=== PATIENT | male | born 1960 | race African-American/Black ===

== ENCOUNTER 2017-12-13 10:30 | Emergency (ER) | payer MEDICAID ==
[~2017-12-13] VITALS: Ht 167.6 cm; Wt 108.9 kg
[2017-12-13 10:47] VITALS: BP 140/77
[2017-12-13] MEDS ORDERED: D5W 275ml ONE (10:51)
[2017-12-13] MEDS ORDERED: Ipratropium 0.02% Inh Soln 2.5ml UD HHN ONE (11:00)
[2017-12-13] MEDS ORDERED: Albuterol ud Inhalation HHN ONE (11:00)
[2017-12-13 11:25] LABS: BASOPHILS % (AUTO) 1.1 % (0.0-2.0); EOSINOPHILS % (AUTO) 4.6 % (0.0-3.0); HEMATOCRIT 42.8 % (42.0-52.0); HEMOGLOBIN 13.7 G/DL (14.2-18.0); LYMPHOCYTES % (AUTO) 33.9 % (20.0-45.0); MEAN CORPUSCULAR VOLUME 97 FL (80-99); MONOCYTES % (AUTO) 9.4 % (1.0-10.0); NEUTROPHILS % (AUTO) 51.1 % (45.0-75.0); PLATELET COUNT 195 K/UL (150-450); RED BLOOD COUNT 4.41 M/UL (4.70-6.10); WHITE BLOOD COUNT 5.4 K/UL (4.8-10.8)
[2017-12-13 11:38] LABS: ANION GAP 6 mmol/L (5-15); BLOOD UREA NITROGEN 9 mg/dL (7-18); CALCIUM 8.8 MG/DL (8.5-10.1); CARBON DIOXIDE 30 MMOL/L (21-32); CHLORIDE 108 MMOL/L (98-107); CREATININE 0.8 MG/DL (0.55-1.30); POTASSIUM 3.9 MMOL/L (3.5-5.1); SODIUM 144 MMOL/L (136-145)
[2017-12-13 11:48] LABS: ALANINE AMINOTRANSFERASE 15 U/L (12-78); ALBUMIN 3.3 G/DL (3.4-5.0); ALBUMIN/GLOBULIN RATIO 0.9 (1.0-2.7); ALKALINE PHOSPHATASE 73 U/L (46-116); ASPARTATE AMINO TRANSFERASE 12 U/L (15-37); BILIRUBIN,TOTAL 0.2 MG/DL (0.2-1.0)
[2017-12-13 11:53] LABS: APPEARANCE,URINE CLEAR; BILIRUBIN, URINE NEGATIVE (NEGATIVE); GLUCOSE, URINE (UA) NEGATIVE (NEGATIVE); KETONES,URINE NEGATIVE (NEGATIVE); LEUKOCYTE ESTERASE ,URINE 1+ (NEGATIVE); NITRITE,URINE NEGATIVE (NEGATIVE); PH,URINE 6 (4.5-8.0); PROTEIN,URINE 1+ (NEGATIVE); UROBILINOGEN,URINE 1 MG/DL (0.0-1.0)
[2017-12-13 11:55] LABS: COLOR,URINE YELLOW
[2017-12-13] MEDS ORDERED: Azithromycin 500 MG in D5W 275 ML IVPB ONE (12:00)
[2017-12-13] MEDS ORDERED: Azithromycin 500mg Inj IV ONE (12:04)
--- NOTE | 2017-12-13 12:31 | Diagnostic Imaging Report ---
Indication: Shortness of breath Technique: One view of the chest Comparison: none Findings: Lungs and pleural spaces are clear. Heart size is upper limits normal Impression: No acute process
[2017-12-13 12:53] VITALS: BP 137/71
[2017-12-13 12:55] VITALS: BP 137/71
--- NOTE | 2017-12-18 13:47 | Emergency Room Report ---
History of Present Illness General Chief Complaint: Upper Respiratory Illness Source: Patient Present Illness HPI Patient is a 57-year-old male who presented after increased cough and difficulty breathing. Patient gradual onset of symptoms over the past few weeks. The patient reports having intermittent chest discomfort as well as increased dyspnea on exertion. He reported nonproductive cough. He states is had multiple choking episodes. Patient is a smoker. He denies any fever. Allergies: Coded Allergies: No Known Allergies (Unverified , 12/13/17) Patient History Past Medical History: see triage record Reviewed Nursing Documentation: PMH: Agreed, PSxH: Agreed Nursing Documentation-PMH Hx Diabetes: Yes - DM type 2 Review of Systems All Other Systems: negative except mentioned in HPI Physical Exam Vital Signs Date Time Temp Pulse Resp B/P (MAP) Pulse Ox O2 Delivery O2 Flow Rate FiO2 12/13/17 10:37 98.1 90 20 127/80 94 Room Air 12/13/17 11:08 21 Sp02 EP Interpretation: reviewed, normal General Appearance: normal inspection, alert, mild distress, obese Head: atraumatic ENT: hearing grossly normal, normal voice, other - rhinorhea Neck: normal inspection, full range of motion, supple, no bony tend Respiratory: normal inspection, lungs clear, normal breath sounds, no respiratory distress, no retraction, no wheezing Cardiovascular #1: regular rate, rhythm, no edema Gastrointestinal: normal inspection, normal bowel sounds, non tender, soft, no guarding, no hernia Genitourinary: no CVA tenderness Musculoskeletal: normal inspection, back normal, normal range of motion Neurologic: normal inspection, alert, oriented x3, responsive, visual display manager III-XII nml as tested, speech normal Psychiatric: normal inspection, judgement/insight normal, mood/affect normal Skin: normal inspection, normal color, no rash Medical Decision Making Diagnostic Impression: Primary Impression: Bronchitis Additional Impression: Chest pain ER Course Patient presented for shortness of breath. Differential included but was not limited to anemia, pneumonia, pneumothorax, myocardial infarction, pericardial effusion, congestive heart failure, acidosis. Because of complexity of patient' s case laboratory testing and imaging studies were ordered. The patient given breathing treatments as well as steroids. The patient was noted to have a significant difficulty with respirations. Given the patient's cardiac risk factors I discussed admission to the hospital and patient was initially amenable. The patient was noted to have capitated hospital to a different facility. The patient stated he no longer wanted to remain in the hospital The patient was advised risk benefits alternatives of leaving AGAINST MEDICAL ADVICE and he indicated understanding and all questions are answered patient still continued want to leave and signed AGAINST MEDICAL ADVICE. Despite risks including but not limited to disability and worsening of current lifestyle. Labs Test 12/13/17 10:55 12/13/17 11:00 Urine Color Yellow Urine Appearance Clear Urine pH 6 (4.5-8.0) Urine Specific [place] 1.020 (1.005-1.035) Urine Protein 1+ (NEGATIVE) Urine Glucose (UA) Negative (NEGATIVE) Urine Ketones Negative (NEGATIVE) Urine Occult Blood Negative (NEGATIVE) Urine Nitrite Negative (NEGATIVE) Urine Bilirubin Negative (NEGATIVE) Urine Urobilinogen 1 MG/DL (0.0-1.0) Urine Leukocyte Esterase 1+ (NEGATIVE) Urine RBC 0-2 /HPF (0 - 0) Urine WBC 0-2 /HPF (0 - 0) Urine Squamous Epithelial Cells Occasional /LPF Urine Bacteria Occasional /HPF (NONE) Urine Mucus Moderate /LPF (NONE/OCC) White Blood Count 5.4 K/UL (4.8-10.8) Red Blood Count 4.41 M/UL (4.70-6.10) Hemoglobin 13.7 G/DL (14.2-18.0) Hematocrit 42.8 % (42.0-52.0) Mean Corpuscular Volume 97 FL (80-99) Mean Corpuscular Hemoglobin 31.0 PG (27.0-31.0) Mean Corpuscular Hemoglobin Concent 31.9 G/DL (32.0-36.0) Red Cell Distribution Width 12.0 % (11.6-14.8) Platelet Count 195 K/UL (150-450) Mean Platelet Volume 6.9 FL (6.5-10.1) Neutrophils (%) (Auto) 51.1 % (45.0-75.0) Lymphocytes (%) (Auto) 33.9 % (20.0-45.0) Monocytes (%) (Auto) 9.4 % (1.0-10.0) Eosinophils (%) (Auto) 4.6 % (0.0-3.0) Basophils (%) (Auto) 1.1 % (0.0-2.0) Sodium Level 144 MMOL/L (136-145) Potassium Level 3.9 MMOL/L (3.5-5.1) Chloride Level 108 MMOL/L (98-107) Carbon Dioxide Level 30 MMOL/L (21-32) Anion Gap 6 mmol/L (5-15) Blood Urea Nitrogen 9 mg/dL (7-18) Creatinine 0.8 MG/DL (0.55-1.30) Estimat Glomerular Filtration Rate > 60 mL/min (>60) Glucose Level 171 MG/DL (74-106) Lactic Acid Level 1.30 mmol/L (0.66-2.22) Calcium Level 8.8 MG/DL (8.5-10.1) Total Bilirubin 0.2 MG/DL (0.2-1.0) Aspartate Amino Transf (AST/SGOT) 12 U/L (15-37) Alanine Aminotransferase (ALT/SGPT) 15 U/L (12-78) Alkaline Phosphatase 73 U/L (46-116) Troponin I 0.000 ng/mL (0.000-0.056) Pro-B-Type Natriuretic Peptide 81 pg/mL (0-125) Total Protein 6.9 G/DL (6.4-8.2) Albumin 3.3 G/DL (3.4-5.0) Globulin 3.6 g/dL Albumin/Globulin Ratio 0.9 (1.0-2.7) Last Vital Signs Date Time Temp Pulse Resp B/P (MAP) Pulse Ox O2 Delivery O2 Flow Rate FiO2 12/13/17 12:55 98.1 74 20 137/71 99 Room Air 21 Status: improved Disposition: AGAINST MEDICAL ADVICE Condition: Stable Referrals: [facility],REFERRING (PCP) Jefferson Reveles Dec 18, 2017 13:47
--- NOTE | 2017-12-24 14:01 | Cardiology Report ---
APPROVED REPORT EKG Measurement Heart [id number] Sinus rhythm with premature atrial complexes with aberrant conduction Left axis deviation Low voltage QRS Septal infarct, age undetermined Abnormal ECG
== END 2017-12-13 13:08 | disposition left against medical advice (07) ==
LOC: EMR 10:50 → CANBEDREQ 13:08
DX: J40 Bronchitis, not specified as acute or chronic (principal); E11.9 Type 2 diabetes mellitus without complications
CPT/HCPCS: 36415; 71045; 80053; 81003; 83605; 83880; 84484; 85025; 86710; 87040; 93005; 94640; 94664; 99284; J0456; J7512

== ENCOUNTER 2018-05-10 20:13 | Emergency (ER) | payer MEDICAID ==
[~2018-05-10] VITALS: Ht 167.6 cm; Wt 108.9 kg
[2018-05-10] MEDS ORDERED: ASPIRIN81 MG ORAL (20:33)
[2018-05-10] MEDS ORDERED: BENADRYL25 MG ORAL (20:33)
[2018-05-10] MEDS ORDERED: METFORMIN HCL850 M1 ORAL (20:33)
[2018-05-10 20:41] VITALS: BP 148/81
[2018-05-10] MEDS ORDERED: Ketorolac 60mg Inj IM ONE (20:45)
[2018-05-10] MEDS ORDERED: Norco 5mg/325mg tab ORAL ONE (20:45)
[2018-05-10] MEDS ORDERED: ROBAXIN-750750 MG PO (20:46)
[2018-05-10] MEDS ORDERED: PREDNISONE20 MG ORAL (20:46)
[2018-05-10 20:56] VITALS: BP 148/81
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
== END 2018-05-10 20:56 | disposition home or self-care (01) ==
LOC: EMR 20:45
DX: M54.5 Low back pain (principal); M54.2 Cervicalgia; M79.1 Myalgia; E11.9 Type 2 diabetes mellitus without complications
CPT/HCPCS: 96372; 99283

== ENCOUNTER 2018-10-03 11:29 | Emergency (ER) | payer MEDICAID ==
[~2018-10-03] VITALS: Ht 167.6 cm; Wt 108.9 kg
[~2018-10-03 11:29] MED LIST: ASPIRIN81 MG ORAL; BENADRYL25 MG ORAL; METFORMIN HCL850 M1 ORAL; PREDNISONE20 MG ORAL; ROBAXIN-750750 MG PO
[2018-10-03] MEDS ORDERED: ATIVAN1 MG ORAL (11:40)
--- NOTE | 2018-10-03 12:15 | Emergency Room Report ---
History of Present Illness General Chief Complaint: Medication Refill Source: Patient Present Illness HPI 58-year-old male patient presents ER requesting medication refill of 1 mg Ativan. States she has been taking for the past 2 years. Reports that he saw his doctor earlier and got refill of his prescriptions for Abilify, Benadryl, Ativan however when he went to the pharmacy they would not refill the Ativan. Reports he did not follow-up with his doctor and find out why. Denies thoughts of hurting herself or others at this time. Denies fever, chest pain, abdominal pain, vomiting, diarrhea. Allergies: Coded Allergies: No Known Allergies (Unverified , 12/13/17) Patient History Past Medical History: see triage record Reviewed Nursing Documentation: PMH: Agreed; PSxH: Agreed Nursing Documentation-PMH Past Medical History: No History, Except For Hx Diabetes: Yes - DM type 2 History Of Psychiatric Problem: Yes - depression anxiety Review of Systems All Other Systems: negative except mentioned in HPI Physical Exam Vital Signs Date Time Temp Pulse Resp B/P (MAP) Pulse Ox O2 Delivery O2 Flow Rate FiO2 10/03/18 11:35 98.1 73 17 157/94 98 Room Air Sp02 EP Interpretation: reviewed, normal General Appearance: well appearing, no apparent distress, alert, GCS 15, non- toxic Head: normocephalic, atraumatic Eyes: bilateral eye normal inspection, bilateral eye PERRL ENT: hearing grossly normal, normal pharynx, no angioedema, normal voice, uvula midline, moist mucus membranes Neck: full range of motion Respiratory: lungs clear, normal breath sounds, no rhonchi, no respiratory distress, no accessory muscle use, no wheezing, speaking full sentences Cardiovascular #1: regular rate, rhythm, no edema Gastrointestinal: non tender, soft, no mass, non-distended, no guarding, no rebound Musculoskeletal: back normal, digits/nails normal, gait/station normal, normal range of motion, non-tender Neurologic: alert, oriented x3, responsive, motor strength/tone normal, sensory intact Psychiatric: mood/affect normal Skin: no rash Medical Decision Making PA Attestation Dr. Sargent is my supervising Physician whom patient management has been discussed with. Diagnostic Impression: Primary Impression: Encounter for medication refill ER Course Pt. presents to the ED requesting prescription refill. Multiple differentials were considered. Vital signs: are WNL, pt. is afebrile ORDERS: PE benign Informed patient would not provide refill of medication. denies thoughts of hurting himself or others at this time. Will not provide refill of medication. provided contact information for mental health urgent care. Contact primary care provider for further treatment. Informed patient ER cannot provide refills in the future; followup, management and prescription of long-term medications must be performed by primary care provider. ER precautions given. DISCHARGE: No Rx provided at this time. At this time pt is stable for d/c to home. Patient is resting comfortably, in no acute distress, nontoxic appearing, talking without difficulty. Patient to take medications as instructed Will provide with patient care instructions and any necessary prescriptions. Care plan and follow-up instructions provided. Patient instructed to follow-up with primary care provider in 3 - 5 days. Patient questions asked and answered. Patient reports understanding and agreement to treatment plan. ER precautions given. Patient instructed to return to ER immediately for any new or worsening of symptoms including but not limited to increasing SOB, persistent fever. - Please note that this Emergency Department Report was dictated using [employer] equipment maintenance supervisor technology software, occasionally this can lead to erroneous entry secondary to interpretation by the dictation equipment. Last Vital Signs Date Time Temp Pulse Resp B/P (MAP) Pulse Ox O2 Delivery O2 Flow Rate FiO2 10/03/18 11:35 98.1 73 17 157/94 98 Room Air Disposition: HOME, SELF-CARE Condition: Stable Patient Instructions: Medicine Refill at the Emergency Department Additional Instructions: follow-up with mental health urgent care. Followup with primary care provider and pharmacy to discuss medication refill. Take medications as directed. Patient questions asked and answered. ER precautions given, patient instructed to return to ER immediately for any new or worsening of symptoms. Brant Dias Oct 03, 2018 12:15
[2018-10-03 13:30] VITALS: BP 157/94
== END 2018-10-03 13:32 | disposition home or self-care (01) ==
LOC: EMR 12:03
DX: Z76.0 Encounter for issue of repeat prescription (principal); E11.9 Type 2 diabetes mellitus without complications; F32.9 Major depressive disorder, single episode, unspecified; F41.9 Anxiety disorder, unspecified
CPT/HCPCS: 99282

== ENCOUNTER 2020-05-19 13:35 | Outpatient (CLI) | payer MEDICAID ==
[~2020-05-19] VITALS: Ht 167.6 cm; Wt 108.4 kg
[~2020-05-19 13:35] MED LIST changes: +ATIVAN1 MG ORAL
--- NOTE | 2020-05-19 19:00 | Consultation ---
DATE OF CONSULTATION: 05/19/2020 CONSULTING PHYSICIAN: Gulshan Kumar MD. CHIEF COMPLAINT: Referral for screening colonoscopy, chronic constipation. PAST MEDICAL HISTORY: 1. Hypertension. 2. Depression. 3. Psychiatric disorder. 4. Diabetes. 5. Arthritis. PAST SURGICAL HISTORY: Hiatal hernia repair. MEDICATIONS: Please see medication reconciliation list. FAMILY HISTORY: No family history of GI malignancy. SOCIAL HISTORY: Patient denies any alcohol, but smokes cigarettes . Denies any IV drug abuse. ALLERGIES: To Haldol. REVIEW OF SYSTEMS: Positive for abdominal pain and constipation. PHYSICAL EXAMINATION: VITAL SIGNS: Temperature 99.1, blood pressure 135/70, pulse 66, respirations 20. HEENT: Normocephalic, atraumatic. Sclerae are anicteric. NECK: Supple. No evidence of obvious lymphadenopathy. CARDIOVASCULAR: Regular rate and rhythm. Plus S1-S2. LUNGS: Clear to auscultation bilaterally. ABDOMEN: Positive bowel sounds. Soft, nontender. No rebound. No peritoneal sign. EXTREMITIES: No cyanosis. No clubbing. No edema. ASSESSMENT AND PLAN: This is a 59-year-old male with chronic constipation, most probably secondary to above medication. Patient needs to be on MiraLAX and if that does not work, we will consider adding Amitiza if insurance covers. Meanwhile, patient needs a screening colonoscopy, which we will schedule when authorization is obtained. Gulshan Kumar M.D. DR: TOMMY JOB#: [id number] CC:
[2020-05-20 10:25] VITALS: BP 135/70
[2020-05-20] MEDS ORDERED: ABILIFY10 MG ORAL (10:25)
[2020-05-20] MEDS ORDERED: BENADRYL25 MG ORAL (10:25)
[2020-05-20] MEDS ORDERED: METFORMIN HCL1000 M1 ORAL (10:25)
== END 2020-05-19 15:35 | disposition home or self-care (01) ==
LOC: PAN 13:35
DX: K59.09 Other constipation (principal); I10 Essential (primary) hypertension; F32.9 Major depressive disorder, single episode, unspecified; E11.9 Type 2 diabetes mellitus without complications; M19.90 Unspecified osteoarthritis, unspecified site; R10.9 Unspecified abdominal pain; F17.210 Nicotine dependence, cigarettes, uncomplicated
CPT/HCPCS: G0463

== ENCOUNTER 2020-11-16 16:11 | Emergency (ER) | payer MEDICAID ==
[~2020-11-16] VITALS: Ht 167.6 cm; Wt 106.6 kg
[~2020-11-16 16:11] MED LIST changes: +ABILIFY10 MG ORAL; +METFORMIN HCL1000 M1 ORAL
[2020-11-16 16:45] VITALS: BP 134/84
[2020-11-16] MEDS ORDERED: Acetaminophen 500mg (ES) tab ORAL ONE (17:30)
--- NOTE | 2020-11-16 17:50 | NUR ---
ED Nurse Note: pt taken to x-ray
--- NOTE | 2020-11-16 18:15 | Emergency Room Report ---
History of Present Illness General Chief Complaint: General Complaint Source: Patient Present Illness HPI 60-year-old male presents with fatigue generalized body aches, cough, congestion times a few days, no aggravating relieving factors severity is mild, constant patient presents for evaluation and treatment, no chest pain Allergies: Coded Allergies: HALOPERIDOL (Verified Allergy, Unknown, 05/20/20) COVID-19 Screening Contact w/high risk pt: No Experienced COVID-19 symptoms?: No COVID-19 Testing performed PLANT ATTENDANT OR ASSISTANT OPERATOR: No Patient History Past Medical History: see triage record Social History: Reports: smoking Reviewed Nursing Documentation: PMH: Agreed; PSxH: Agreed Nursing Documentation-PMH Past Medical History: No History, Except For Hx Cardiac Problems: Yes Hx Hypertension: Yes Hx Diabetes: Yes Hx Gastrointestinal Problems: Yes History Of Psychiatric Problem: Yes Hx Neurological Problems: No Review of Systems All Other Systems: negative except mentioned in HPI Physical Exam Vital Signs Date Time Temp Pulse Resp B/P (MAP) Pulse Ox O2 Delivery O2 Flow Rate FiO2 11/16/20 16:19 98.4 87 16 134/84 (101) 98 Room Air Sp02 EP Interpretation: reviewed, normal General Appearance: well appearing, no apparent distress, alert Head: normocephalic, atraumatic Eyes: bilateral eye PERRL, bilateral eye EOMI ENT: uvula midline, moist mucus membranes Neck: supple, thyroid normal, supple/symm/no masses Respiratory: lungs clear, no respiratory distress, no retraction, no accessory muscle use Cardiovascular #1: normal peripheral pulses, regular rate, rhythm, no edema, no gallop, no murmur Gastrointestinal: non tender, soft, no guarding, no rebound Musculoskeletal: normal inspection Neurologic: alert, oriented x3 Psychiatric: mood/affect normal Skin: no rash, warm/dry Medical Decision Making Diagnostic Impression: Primary Impression: Upper respiratory infection Qualified Codes: J06.9 - Acute upper respiratory infection, unspecified ER Course 60-year-old male presents with vague complaints, differential includes upper respiratory infection, COVID-19, COPD exacerbation Patient given Combivent with significant provement in symptoms X-ray negative no evidence of pneumonia Counseled patient to the isolate, he may develop Covid symptoms, Covid handout handed to patient Disposition home with return precautions follow-up with PCP Chest X-Ray Diagnostic Results Chest X-Ray Diagnostic Results : Chest X-Ray Ordered: Yes # of Views/Limited/Complete: 1 View Indication: Shortness of Breath EP Interpretation: Yes Interpretation: no consolidation, no effusion, no pneumothorax, no acute cardiopulmonary disease Impression: No acute disease Electronically Signed by: Kody Sellers MD Last Vital Signs Date Time Temp Pulse Resp B/P (MAP) Pulse Ox O2 Delivery O2 Flow Rate FiO2 11/16/20 16:19 98.4 87 16 134/84 (101) 98 Room Air Disposition: HOME, SELF-CARE Condition: Stable Referrals: [facility],REFERRING (PCP) [facility] Robbie Cardenas [facility]. [facility] Patient Instructions: Upper Respiratory Infection, Adult, [id number] Additional Instructions: The patient was provided with discharge instructions, notified to follow-up with a primary care doctor and or specialist in the next 24-48 hours, and to return to the ED if they have worsening of their symptoms. Please note that this report is being documented using [employer] technology. This can lead to erroneous entry secondary to incorrect interpretation by the dictating instrument. Kody Sellers MD Nov 16, 2020 18:15
[2020-11-16 18:21] VITALS: BP 127/80
--- NOTE | 2020-11-16 18:21 | NUR ---
ER DISCHARGE NOTE: Patient is cleared to be discharged per ERMD, pt is aox4, on room air, with stable vital signs. pt was given dc instructions, pt was able to verbalize understanding, pt id band removed. pt is able to ambulate with steady gait. pt took all belongings.
--- NOTE | 2020-11-17 14:34 | Diagnostic Imaging Report ---
Indication: Cough Technique: One view of the chest Comparison: 12/13/2017 Findings: Lungs and pleural spaces are clear. Heart size is normal. Impression: No acute process
== END 2020-11-16 18:21 | disposition home or self-care (01) ==
LOC: EMR 17:29
DX: J06.9 Acute upper respiratory infection, unspecified (principal); I11.9 Hypertensive heart disease without heart failure; E11.9 Type 2 diabetes mellitus without complications; F17.200 Nicotine dependence, unspecified, uncomplicated; Z88.8 Allergy status to other drugs, medicaments and biological substances
CPT/HCPCS: 71045; J7512; Z7502; 99283